=== PATIENT | male | born 1990 | race Caucasian/White ===

== ENCOUNTER 2017-05-31 02:19 | Inpatient (IN) | payer MEDICARE, OTHER ==
[~2017-05-31] VITALS: Ht 182.9 cm; Wt 99.8 kg
[2017-05-31] MEDS ORDERED: ZOLPIDEM TARTRATE 5 MG TABLET PO PRN (03:00)
[2017-05-31] MEDS ORDERED: MAGNESIUM HYDROXIDE 30 ML UDC PO PRN (03:00)
[2017-05-31] MEDS ORDERED: CEFTRIAXONE 1 G VIAL IM SCH (03:00)
[2017-05-31] MEDS ORDERED: HYDROCODONE/APAP 5/325MG 1 EACH TABLET PO PRN (03:00)
[2017-05-31] MEDS ORDERED: ACETAMINOPHEN 325 MG TABLET PO PRN (03:00)
[2017-05-31] MEDS ORDERED: ONDANSETRON HCL/PF 4 MG/2 ML VIAL IVP PRN (03:00)
[2017-05-31] MEDS ORDERED: MORPHINE SULFATE INJ 2 MG/ML DISP.SYRIN IV PRN (03:00)
[2017-05-31] MEDS ORDERED: ALBUTEROL FS 2.5 MG/0.5 ML VIAL.NEB NEB PRN (03:00)
[2017-05-31] MEDS ORDERED: Z GUARD REMEDY 2 OZ OINT TP PRN (03:00)
[2017-05-31] MEDS ORDERED: MAG HYDROX/AL HYDROX/SIMETH 30 ML UDC PO PRN (03:00)
--- NOTE | 2017-05-31 07:20 | NUR ---
RN OPENING NOTES PATIENT DIRECT ADMIN FROM [facility]. AOX4. ON TELE READING SR 78. AOX4. RESPIRATIONS EVEN AND UNLABORED. LWRIST 20 G PATENT AND INTACT. NO ACUTE DISTRESS NOTED. DENIES ANY PAIN. DENIES SOB AND CP. BED LOCKED IN THE LOWEST POSITION WITH SIDERAILS UP X2. CALL LIGHT WITHIN REACH. WILL CONTINUE TO MONITOR, ASSESS AND EDUCATE PATIENT THROUGHOUT SHIFT.
[2017-05-31 08:00] VITALS: BP 122/73
[2017-05-31] MEDS ORDERED: MYCO500T PO (08:23)
[2017-05-31] MEDS ORDERED: PRED20TA PO (08:23)
[2017-05-31] MEDS ORDERED: PYRI180T PO (08:23)
[2017-05-31] MEDS ORDERED: PYRI60TA PO (08:23)
[2017-05-31] MEDS: PANTOPRAZOLE 40 MG VIAL IV SCH (08:48)
[2017-05-31] MEDS: IV NS 0.9% 1,000 ML IV PRN (08:49)
[2017-05-31] MEDS ORDERED: predniSONE 20 MG TABLET PO SCH ×2 (09:00→11:30)
[2017-05-31 10:04] LABS: BASOPHILS % (AUTO) 0.1 % (0.0-2.0); EOSINOPHILS % (AUTO) 0.1 % (0.0-6.0); HEMATOCRIT 42 % (39-51); HEMOGLOBIN 14.5 g/dL (13.5-17.5); LYMPHOCYTES % (AUTO) 9.2 % (20.0-44.0); MEAN CORPUSCULAR HEMOGLOBIN 32 PG (26.0-33.0); MEAN CORPUSCULAR HGB CONC 35 g/dl (31.0-36.0); MEAN CORPUSCULAR VOLUME 91 fL (80-96); MONOCYTES # (AUTO) 0.2 /CMM (0.1-1.30); MONOCYTES % (AUTO) 1.6 % (2.0-12.0); NEUTROPHILS # (AUTO) 9.9 /CMM (1.8-8.9); PLATELET COUNT (AUTO) 200 /CMM (150-450); RDW COEFFICIENT OF VARIATION 12.9 (11.5-15.0); RED BLOOD CELL COUNT(AUTO) 4.59 MIL/uL (4.5-6.0); WHITE BLOOD COUNT (AUTO) 11.1 K/uL (4.3-11.0)
[2017-05-31 10:09] LABS: CREATININE 0.7 mg/dL (0.6-1.3); MAGNESIUM 1.8 mg/dL (1.8-2.4); POTASSIUM 3.6 mmol/L (3.5-5.1)
[2017-05-31] MEDS: AZITHROMYCIN 500 MG in IV D5W 250 ML IV SCH (11:06)
--- NOTE | 2017-05-31 11:36 | NUR ---
RN NOTES PATIENT TOOK PREDNISONE 0600. DOSE FOR TODAY SELF ADMINISTERED. WILL HOLD MEDICATIONS.
[2017-05-31 12:00] VITALS: BP 115/74
[2017-05-31] MEDS ORDERED: PYRIDOSTIGMINE BROMIDE 60 MG TABLET PO SCH ×4 (12:00→22:00)
[2017-05-31] MEDS: CEFTRIAXONE 1 G in IV D5W 50 ML IV SCH (12:25)
[2017-05-31] MEDS: MYCOPHENOLATE MOFETIL 250 MG CAPSULE PO SCH ×2 (12:26→17:00)
[2017-05-31] MEDS: ENOXAPARIN SODIUM 30 MG/0.3 ML DISP.SYRIN SQ SCH (12:28)
[2017-05-31] MEDS: PYRIDOSTIGMINE BROMIDE 60 MG TABLET PO SCH ×2 (13:31→17:00)
[2017-05-31 16:00] VITALS: BP 107/55
--- NOTE | 2017-05-31 19:20 | NUR ---
FLOOR ATTENDANT NOTE RECEIVED PT IN BED, AOX4, VERBALLY RESPONSIVE. ON SR 76 ON TELE MONITOR. RESPIRATIONS EVEN AND UNLABORED, NO ACUTE DISTRESS NOR SOB NOTED AT THIS TIME. IV SITE ON L HAND 20 G PATENT AND INTACT, IVF INFUSING WELL. DENIES ANY PAIN OR DISCOMFORT AT THIS TIME. CALL LIGHT WITHIN REACH. ALL NEEDS ATTENDED AND MET. SAFETY PRECAUTIONS OBSERVED. WILL CONTINUE TO MONITOR.
[2017-05-31 20:00] VITALS: BP 108/63
--- NOTE | 2017-05-31 20:05 | NUR ---
RN CLOSING NOTES PATIENT DIRECT ADMIN FROM [place]. AOX4. ON TELE READING SR 78. AOX4. RESPIRATIONS EVEN AND UNLABORED. L HAND 20 G PATENT AND INTACT. NO ACUTE DISTRESS NOTED. DENIES ANY PAIN. DENIES SOB AND CP. BED LOCKED IN THE LOWEST POSITION WITH SIDERAILS UP X2. CALL LIGHT WITHIN REACH. ALL NEEDS MET. ALL MEDS GIVEN NEEDED. WILL ENDORSE TO NIGHT RN FOR MIGUEL.
--- NOTE | 2017-05-31 20:24 | NUR ---
RN NOTES MEDICATIONS ADJUSTED PER PATIENT REQUEST. PATIENT TAKES MEDICATIONS AT SCHEDULED TIME. WILL ENTER AND CARRY OUT ORDERED.
--- NOTE | 2017-05-31 20:59 | NUR ---
PYRIDOSTIGMINE BROMIDE 180 MG IN A SEALED BOTTLED BROUGHT BY PT'S MOTHER AND BROTHER, AND GIVEN TO HOA TOBAR.
[2017-05-31] MEDS: PYRIDOSTIGMINE BROMIDE 180 MG PO SCH (21:40)
[2017-05-31] MEDS ORDERED: PYRIDOSTIGMINE BROMIDE 180 MG PO SCH ×3 (22:00)
[2017-06-01] VITALS: BP 96/55
[2017-06-01 04:00] VITALS: BP 105/72
[2017-06-01] MEDS: predniSONE 20 MG TABLET PO SCH (06:05)
[2017-06-01] MEDS: PYRIDOSTIGMINE BROMIDE 60 MG TABLET PO SCH ×4 (06:05→17:31)
--- NOTE | 2017-06-01 06:36 | NUR ---
KRA[employer] MILL OPERATOR NOTE PT IN BED,RESTING COMFORTABLY AT THIS TIME, AROUSES EASILY, AOX4, VERBALLY RESPONSIVE. ON SR 74 ON TELE MONITOR. RESPIRATIONS EVEN AND UNLABORED, NO ACUTE DISTRESS NOR SOB NOTED AT THIS TIME. IV SITE ON L HAND 20 G PATENT AND INTACT, IVF INFUSING WELL. NO C/O PAIN OR DISCOMFORT AT THIS TIME. ALL DUE MEDICATIONS GIVEN. CALL LIGHT WITHIN REACH. ALL NEEDS ATTENDED AND MET. SAFETY PRECAUTIONS OBSERVED. WILL ENDORSE TO NEXT SHIFT FOR MIGUEL.
[2017-06-01 07:48] LABS: BASOPHILS % (AUTO) 0.3 % (0.0-2.0); EOSINOPHILS # (AUTO) 0.1 /CMM (0.0-0.7); EOSINOPHILS % (AUTO) 0.7 % (0.0-6.0); HEMATOCRIT 42 % (39-51); HEMOGLOBIN 14.9 g/dL (13.5-17.5); LYMPHOCYTES # (AUTO) 2.6 /CMM (0.8-4.8); LYMPHOCYTES % (AUTO) 27.9 % (20.0-44.0); MEAN CORPUSCULAR HEMOGLOBIN 32 PG (26.0-33.0); MEAN CORPUSCULAR HGB CONC 35 g/dl (31.0-36.0); MEAN CORPUSCULAR VOLUME 91 fL (80-96); MONOCYTES # (AUTO) 0.8 /CMM (0.1-1.30); MONOCYTES % (AUTO) 8.3 % (2.0-12.0); NEUTROPHILS # (AUTO) 5.9 /CMM (1.8-8.9); NEUTROPHILS % (AUTO) 62.8 % (43.0-81.0); PLATELET COUNT (AUTO) 190 /CMM (150-450); RDW COEFFICIENT OF VARIATION 12.8 (11.5-15.0); RED BLOOD CELL COUNT(AUTO) 4.68 MIL/uL (4.5-6.0); WHITE BLOOD COUNT (AUTO) 9.4 K/uL (4.3-11.0)
--- NOTE | 2017-06-01 07:50 | NUR ---
TELE/RN OPENING NOTE PATIENT IN BED IN STABLE CONDITION. A/O X 4. NO SIGNS OF ACUTE DISTRESS. NO COMPLAIN OF PAIN OR DISCOMFORT. ON TELE MONITOR WITH SINUS RHYTHM IN 70'S. ALL NEEDS ATTENDED TO AT THIS TIME. CALL LIGHT WITHIN REACH. WILL CONTINUE TO MONITOR TO ENSURE SAFETY.
[2017-06-01 08:00] VITALS: BP 108/77
[2017-06-01 08:24] LABS: CALCIUM, SERUM 8.1 mg/dL (8.5-10.1); CREATININE 0.6 mg/dL (0.6-1.3); PHOSPHORUS 3.7 mg/dL (2.5-4.9); POTASSIUM 3.4 mmol/L (3.5-5.1)
[2017-06-01] MEDS: AZITHROMYCIN 500 MG in IV D5W 250 ML IV SCH (09:18)
[2017-06-01] MEDS: PANTOPRAZOLE 40 MG VIAL IV SCH (09:19)
[2017-06-01] MEDS: MYCOPHENOLATE MOFETIL 250 MG CAPSULE PO SCH ×2 (09:19→17:31)
[2017-06-01] MEDS: IV NS 0.9% 1,000 ML IV PRN ×2 (09:20→21:15)
[2017-06-01] MEDS: ENOXAPARIN SODIUM 30 MG/0.3 ML DISP.SYRIN SQ SCH (09:21)
[2017-06-01] MEDS: CEFTRIAXONE 1 G in IV D5W 50 ML IV SCH (10:43)
[2017-06-01] MEDS ORDERED: POTASSIUM CHLORIDE 20 MEQ POWDER PACKET PO SCH (12:30)
[2017-06-01 16:00] VITALS: BP 124/84
--- NOTE | 2017-06-01 16:00 | NUR ---
MS/RN SPOKE WITH DR CHAMORRO SPOKE WITH DR CHAMORRO AND MADE AWARE REGARDING RD RECOMMENDATION OF CLEAR BOOST BID. PER DR CHAMORRO DC CLEAR LIQUID AND START REGULAR DIET. PATIENT AWARE.
--- NOTE | 2017-06-01 18:20 | NUR ---
MS/RN CLOSING NOTE PATIENT IN BED IN STABLE CONDITION. A/O X 4. NO SIGNS OF ACUTE DISTRESS. NO COMPLAIN OF PAIN OR DISCOMFORT. ALL NEEDS ATTENDED TO. CALL LIGHT WITHIN REACH. WILL ENDORSE TO NEXT SHIFT FOR CONTINUITY OF CARE.
--- NOTE | 2017-06-01 19:00 | NUR ---
MS RN OPENING RECEIVE PATIENT IN BED AWAKE A/O X 4, COMFORTABLE, STABLE CONDITION. NO C/O PAIN, NO DISTRESS NOTED, SAFETY MEASURES IN PLACE. CALL LIGHT IN REACH. WILL MONITOR.
[2017-06-01 20:00] VITALS: BP 125/72
[2017-06-01] MEDS: PYRIDOSTIGMINE BROMIDE 180 MG PO SCH (21:15)
[2017-06-02] MEDS: predniSONE 20 MG TABLET PO SCH (05:26)
[2017-06-02] MEDS: PYRIDOSTIGMINE BROMIDE 60 MG TABLET PO SCH (05:27)
--- NOTE | 2017-06-02 06:28 | NUR ---
MS RN CLOSING NOTES PT COMFORTABLY ASLEEP AND EASILY AWAKEN, TOLERATING ROOM AIR 02 SAT 98% IN STABLE CONDITION. RESPIRATION EVEN AND UNLABORED. KEPT CLEAN AND DRY AND COMFORTABLE, ALL NURSING CARE RENDERED. NEEDS ATTENDED AND ANTICIPATED, FREQUENT VISUAL CHECK DONE FOR SAFETY EVERY 2 HOURS. ON LOW BED AT ALL TIMES TO ENSURE SAFETY. SAFE HAZARD FREE ENVIRONMENT PROVIDED. NO COMPLAINS OF PAIN. CALL LIGHT WITHIN EASY TO REACH. WILL ENDORSE NEXT SHIFT CONTINUITY OF CARE.
[2017-06-02 07:21] LABS: CREATININE 0.6 mg/dL (0.6-1.3); POTASSIUM 3.4 mmol/L (3.5-5.1)
--- NOTE | 2017-06-02 07:41 | NUR ---
MS RN OPENING NOTES RECEIVED PATIENT IN NO APPARENT DISTRESS. BEDSIDE RAILS ARE UP X2. BED IS LOCKED AND LOWERED. CALL LIGHT IS WITHIN REACH. WILL CONTINUE TO MONITOR.
[2017-06-02 08:00] VITALS: BP 116/70
[2017-06-02] MEDS: MYCOPHENOLATE MOFETIL 250 MG CAPSULE PO SCH (08:07)
[2017-06-02] MEDS: PANTOPRAZOLE 40 MG VIAL IV SCH (08:08)
[2017-06-02] MEDS: ENOXAPARIN SODIUM 30 MG/0.3 ML DISP.SYRIN SQ SCH (08:08)
[2017-06-02] MEDS ORDERED: AZIT500T PO (08:29)
--- NOTE | 2017-06-02 09:54 | NUR ---
DISCHARGED PATIENT IN STABLE CONDITION. VITAL SIGNS WNL. IN NO APPARENT DISTRESS. ALL NEEDS WERE MET. EXITCARE PROVIDED TO THE PATIENT. IV REMOVED. ID BAND WAS REMOVED. PATIENT ESCORTED OUTSIDE OF THE HOSPITAL BY [facility].
[2017-06-02] MEDS ORDERED: AZITHROMYCIN 250 MG TABLET PO SCH (10:00)
== END 2017-06-02 10:00 | disposition home or self-care (01) | DRG 871 ==
LOC: TELE 06:57 → MED 06-01 10:57
PROVIDERS: ADMIT Internal Medicine; ATTEND Internal Medicine
DX: A41.9 Sepsis, unspecified organism (principal); J15.9 Unspecified bacterial pneumonia; E87.2 Acidosis; G70.00 Myasthenia gravis without (acute) exacerbation; E66.9 Obesity, unspecified; Z68.29 Body mass index [BMI] 29.0-29.9, adult
CPT/HCPCS: 36415; 71045-TC; 80048-TC; 83605-TC; 83735-TC; 84100-TC; 84484-TC; 85025-TC; 87040-TC; 87070-TC; 87081-TC; C9113; J0456; J0696; J1650; J7030; J7060; J7517; Z7610